=== PATIENT | female | born 1965 | race Caucasian/White ===

== ENCOUNTER → 2020-07-14 | Outpatient (CLI) | payer BC ==
[2020-07-14 23:33] LABS: Basophils # (A) 0.08 X 10*3/uL (0.00-0.10); Basophils % (A) 0.6 %; Eosinophils # (A) 0.07 X 10*3/uL (0.04-0.35); Eosinophils % (A) 0.5 %; HCT 42.3 % (37.2-46.3); HGB 13.9 g/dL (12.0-15.0); Lymphocytes # (A) 1.08 X 10*3/uL (0.90-5.00); Lymphocytes % (A) 7.5 %; MCH 28.5 pg (27.0-32.0); MCHC 32.9 g/dL (32.0-37.0); MCV 86.9 fL (80.0-97.0); Mean Platelet Volume 10.3 fL (9.5-12.2); Monocytes # (A) 1.45 X 10*3/uL (0.20-1.00); Monocytes % (A) 10.1 %; Neutrophils # (A) 11.51 X 10*3/uL (1.80-7.70); Neutrophils % (A) 79.8 %; Platelet Count 365 X 10*3/uL (140-440); RBC 4.87 X 10*6/uL (4.10-5.20); RDW 12.5 % (11.5-14.5)
[2020-07-15 02:35] LABS: Erythrocyte Sedimentation Rate 68 mm/Hr (0-30)
== END | disposition home or self-care (01) ==
LOC: EDSEX → LABWHC1 15:50
PROVIDERS: ATTEND Nurse Practitioner
DX: Z47.1 Aftercare following joint replacement surgery (principal); Z96.642 Presence of left artificial hip joint; M16.12 Unilateral primary osteoarthritis, left hip
CPT/HCPCS: 36415; 85025; 85652; 86140

== ENCOUNTER 2020-07-15 08:48 | Emergency (ER) | payer BC ==
[2020-07-15 08:54] VITALS: BP 137/82; PULSE 121; RESP 16
[2020-07-15 08:55] VITALS: TEMP 98.2
--- NOTE | 2020-07-15 09:26 | ED ---
General Adult HPI - General Chief complaint: Extremity Problem,Nontraumatic Stated complaint: post surgery complications Time Seen by Provider: 07/15/20 08:50 Source: patient, family, RN notes reviewed, old records reviewed Mode of arrival: wheelchair Limitations: no limitations - History of Present Illness Initial comments: This is a 54-year-old male who presents emergency Department complaining that he has quite a bit of what he drainage from his left incision site on his left hip. Patient states he had surgery at another facility in April and over the weekend it started to swell and then this morning it ruptured and he had a lot of bloody fluid come out but the size of the thigh is still considerably larger than normal. Patient states very painful to touch as well. Patient was sent in for blood work yesterday. Patient denies any fever chills. Patient denies any chest pain difficulty breathing first breath. Patient denies any back pain. Patient denies any groin pain. Patient denies any other symptoms at this time. - Related Data Allergies Allergy/AdvReac Type Severity Reaction Status Date / Time No Known Allergies Allergy Verified 07/15/20 08:52 Review of Systems ROS Statement: Those systems with pertinent positive or pertinent negative responses have been documented in the HPI. ROS Other: All systems not noted in ROS Statement are negative. Past Medical History Past Medical History: Diabetes Mellitus Additional Past Medical History / Comment(s): t2DM History of Any Multi-Drug Resistant Organisms: None Reported Past Surgical History: Orthopedic Surgery Past Psychological History: No Psychological Hx Reported Smoking Status: Never smoker Past Alcohol Use History: Occasional Past Drug Use History: None Reported General Exam - General Exam Comments Initial Comments: GENERAL: Patient is well-developed and well-nourished. Patient is nontoxic and well- hydrated and is in mild distress. ENT: Neck is soft and supple. No significant lymphadenopathy is noted. Oropharynx is clear. Moist mucous membranes. Neck has full range of motion without eliciting any pain. EYES: The sclera were anicteric and conjunctiva were pink and moist. Extraocular movements were intact and pupils were equal round and reactive to light. Eyelids were unremarkable. PULMONARY: Unlabored respirations. Good breath sounds bilaterally. No audible rales rhonchi or wheezing was noted. CARDIOVASCULAR: There is a regular rate and rhythm without any murmurs gallops or rubs. ABDOMEN: Soft and nontender with normal bowel sounds. SKIN: Skin is clear with no lesions or rashes and otherwise unremarkable. NEUROLOGIC: Patient is alert and oriented x3. Cranial nerves II through XII are grossly intact. Motor and sensory are also intact. Normal speech, volume and content. Symmetrical smile. MUSCULOSKELETAL: Left thigh is considerably larger than the right very tender to palpation particularly around the incision site that is now open draining serosanguineous fluid. LYMPHATICS: No significant lymphadenopathy is noted PSYCHIATRIC: Normal psychiatric evaluation. Limitations: no limitations Course Vital Signs 07/15/20 08:52 Temperature 98.2 F Pulse Rate 121 H Respiratory 16 Rate Blood Pressure 137/82 O2 Sat by Pulse 96 Oximetry Medical Decision Making - Medical Decision Making I ordered labs and CAT scan of the hip patient then got a call from his surgeon that he wanted him at [facility] patient wanted to drive by private vehicle and he signed out AMA understanding the possible risks. Disposition Clinical Impression: Postoperative complication of skin involving drainage from surgical wound Disposition: Left Against Medical Advice Referrals: Ryan Vann MD [Primary Care Provider] - 1-2 days Time of Disposition: 09:31
== END 2020-07-15 09:42 | disposition left against medical advice (07) ==
LOC: EDSEX → EC 08:48
DX: L76.82 Other postprocedural complications of skin and subcutaneous tissue (principal); T81.31XA Disruption of external operation (surgical) wound, not elsewhere classified, initial encounter
CPT/HCPCS: 99283

== ENCOUNTER → 2020-12-13 | Outpatient (CLI) | payer BC ==
[2020-12-13 12:08] LABS: Basophils % (A) 0 %; Eosinophils # (A) 0.3 k/uL (0-0.7); Eosinophils % (A) 3 %; HCT 42.9 % (39.0-53.0); Lymphocytes # (A) 1.4 k/uL (1.0-4.8); Lymphocytes % (A) 17 %; MCH 28.2 pg (25.0-35.0); MCHC 32.6 g/dL (31.0-37.0); MCV 86.2 fL (80.0-100.0); Mean Platelet Volume 7.3; Monocytes # (A) 0.6 k/uL (0-1.0); Monocytes % (A) 7 %; Neutrophils % (A) 69 %; Platelet Count 182 k/uL (150-450); RBC 4.97 m/uL (4.30-5.90); RDW 15.3 % (11.5-15.5); WBC 8.6 k/uL (3.8-10.6)
[2020-12-13 12:25] LABS: ALT 16 U/L (4-49); AST 19 U/L (17-59); African American GFR (CKD) >90 (>60 ml/min/1.73 sqM); Albumin 4.7 g/dL (3.5-5.0); Albumin/Globulin Ratio 1.8; Alkaline Phosphatase 70 U/L (38-126); Anion Gap 11 mmol/L; Blood Urea Nitrogen 11 mg/dL (9-20); Calcium 9.8 mg/dL (8.4-10.2); Carbon Dioxide 29 mmol/L (22-30); Chloride 97 mmol/L (98-107); Globulin 2.6 g/dL; Glucose 150 mg/dL (74-99); Non-African American GFR(CKD) >90 (>60 ml/min/1.73 sqM); Sodium 137 mmol/L (137-145); Total Bilirubin 0.8 mg/dL (0.2-1.3); Total Protein 7.3 g/dL (6.3-8.2)
[2020-12-13 12:37] LABS: C Reactive Protein 16.7 mg/dL (<1.0)
[2020-12-13 12:42] LABS: Potassium 4.7 mmol/L (3.5-5.1)
[2020-12-13 13:46] LABS: Erythrocyte Sedimentation Rate 53 mm/hr (0-15)
== END | disposition home or self-care (01) ==
LOC: LABWHC1 11:31
PROVIDERS: ATTEND Specialist
DX: T84.52XA Infection and inflammatory reaction due to internal left hip prosthesis, initial encounter (principal)
CPT/HCPCS: 36415; 80053; 85025; 85652; 86140

== ENCOUNTER → 2021-06-21 | Outpatient (CLI) | payer BC ==
[2021-06-21 10:26] LABS: INR 0.9 (<1.2); Partial Thromboplastin Time 23.2 sec (22.0-30.0); Prothrombin Time 10.2 sec (9.0-12.0)
[2021-06-21 14:57] LABS: HCT 42.7 % (39.6-50.0); HGB 14.3 g/dL (13.0-17.0); MCH 30.9 pg (27.0-32.0); MCHC 33.5 g/dL (32.0-37.0); MCV 92.2 fL (80.0-97.0); Mean Platelet Volume 9.5 fL (9.5-12.2); Platelet Count 206 X 10*3/uL (140-440); RBC 4.63 X 10*6/uL (4.40-5.60)
[2021-06-21 15:14] LABS: African American GFR (CKD) 125.3 (60.0-200.0); Albumin 4.6 g/dL (3.8-4.9); Albumin/Globulin Ratio 1.51 (1.60-3.17); Anion Gap 16.1 mmol/L (10.00-18.00); BUN/Creat Ratio 20.99 Ratio (12.00-20.00); Blood Urea Nitrogen 13.6 mg/dL (9.0-27.0); Calcium 9.6 mg/dL (8.7-10.3); Carbon Dioxide 24.1 mmol/L (20.0-27.5); Globulin 3.1 g/dL (1.6-3.3); Non-African American GFR(CKD) 108.1 (60.0-200.0); Potassium 4.5 mmol/L (3.5-5.5); Total Bilirubin 0.5 mg/dL (0.30-1.20); Total Protein 7.7 g/dL (6.2-8.2)
== END | disposition home or self-care (01) ==
LOC: LABWHC1 09:27
PROVIDERS: ATTEND Orthopaedic Surgery
DX: Z01.818 Encounter for other preprocedural examination (principal); M12.9 Arthropathy, unspecified; D64.9 Anemia, unspecified
CPT/HCPCS: 36415; 80053; 83036; 85027; 85610; 85730; 86850; 86900; 86901

== ENCOUNTER → 2021-07-07 | Outpatient (CLI) | payer BC ==
[~2021-07-07] MED LIST: REGADENOSON 0.4 MG/5 ML SYRINGE IV PRN
--- NOTE | 2021-07-07 13:03 | NM ---
EXAMINATION TYPE: NM stress lexiscan cardiolite DATE OF EXAM: 07/07/2021 COMPARISON: NONE HISTORY: Abnormal EKG. History of hypertension, diabetes, and hypercholesterolemia. TECHNIQUE: After the intravenous administration of 9.3 mCi Tc 99m Sestamibi - Cardiolite resting SPE CT images acquired 55 minutes post injection. The patient received 0.4mg Lexiscan, 25.8 mCi Tc 99m Sestamibi - Stress images obtained [address] injection FINDINGS: Review of stress and rest SPECT images demonstrates no distinct perfusion abnormality. Gated analysi s shows normal wall motion with an estimated left ventricular ejection fraction of 55 %. IMPRESSION: No scintigraphic evidence for reversible ischemia.
--- NOTE | 2021-07-08 10:36 | ECHOF ---
Referral Reason:R94.31 Abnormal EKG MEASUREMENTS -------- HEIGHT: 170.2 cm WEIGHT: 81.6 kg BP: 111/57 RVIDd: 3.7 cm (< 3.3) IVSd: 1.2 cm (0.6 - 1.1) LVIDd: 4.7 cm (3.9 - 5.3) LVPWd: 1.3 cm (0.6 - 1.1) IVSs: 1.8 cm LVIDs: 3.2 cm LVPWs: 1.5 cm LA Diam: 3.3 cm (2.7 - 3.8) LAESV Index (A-L): 25.26 ml/m Ao Diam: 3.9 cm (2.0 - 3.7) AV Cusp: 2.3 cm (1.5 - 2.6) MV EXCURSION: 19.089 mm (> 18.000) MV EF SLOPE: 38 mm/s (70 - 150) EPSS: 1.0 cm MV E Dominguez: 0.80 m/s MV DecT: 280 ms MV A Dominguez: 0.87 m/s MV E/A Ratio: 0.91 AV maxP.38 mmHg AV meanP.88 mmHg AR PHT: 471 ms RAP: 5.00 mmHg RVSP: 34.00 mmHg FINDINGS -------- Sinus rhythm. This was a technically good study. The left ventricular size is normal. There is mild concentric left ventricular hypertrophy. Overa ll left ventricular systolic function is normal with, an EF between 60 - 65 %. The right ventricle is mildly enlarged. Normal LA size by volume 22+/-6 ml/m2. The right atrium is normal in size. Aneurysmal Interatrial septum. The aortic valve is bicuspid. There is mild aortic regurgitation. Peak/mean gradient across the A ortic Valve is 11.38mmHg / 4.88mmHg. The mitral valve is normal. Mild tricuspid regurgitation present. There is borderline pulmonary hypertension. The right ventr icular systolic pressure, as measured by Doppler, is 34.00mmHg. Trace/mild (physiologic) pulmonic regurgitation. The aortic root is dilated measuring 3.9cm. Normal inferior vena cava with normal inspiratory collapse consistent with estimated right atrial pre ssure of 5 mmHg. There is no pericardial effusion. CONCLUSIONS -------- 1. The left ventricular size is normal. 2. There is mild concentric left ventricular hypertrophy. 3. Overall left ventricular systolic function is normal with, an EF between 60 - 65 %. 4. The right ventricle is mildly enlarged. 5. Aneurysmal Interatrial septum. 6. The aortic valve is bicuspid. 7. There is mild aortic regurgitation. 8. Peak/mean gradient across the Aortic Valve is 11.38mmHg / 4.88mmHg. 9. Mild tricuspid regurgitation present. 10. There is borderline pulmonary hypertension. 11. The right ventricular systolic pressure, as measured by Doppler, is 34.00mmHg. 12. Trace/mild (physiologic) pulmonic regurgitation. 13. The aortic root is dilated measuring 3.9cm. 14. There is no pericardial effusion. PUBLIC HEALTH TEACHER: Ashley Hendrix RDCS
--- NOTE | 2021-07-08 14:05 | EST ---
EXERCISE STRESS DATE OF SERVICE: 07/07/2021 AGE: 55 SEX: M HT: 5'7" WT: 180 lbs. PROTOCOL: Lexiscan Cardiolite STAGE: NA DURATION OF EXERCISE: NA HEART RATE REST: 74 BLOOD PRESSURE REST: 119/78 MAXIMUM HEART RATE ACHIEVED: 107 MAXIMUM BLOOD PRESSURE: 140/72 85% MPHR: 139 100% MPHR: 163 METS: NA INDICATIONS: Chest pain. CLINICAL INFORMATION: STRESS DATA: Heart rate 74, pressure 119/78 mmHg. Baseline EKG showed sinus mechanism. The patient was given 0.4 mg of Lexiscan over 15 seconds per protocol. Max heart rate was 103 beats per minute. Maximum pressure was 140/72 mmHg. Clinically the patient did not have any symptoms and the EKG did not show any significant ST or T-wave abnormalities concerning for ischemia. CONCLUSION: 1. Nondiagnostic electrocardiogram stress testing in response to Lexiscan. 2. Please follow up on the Cardiolite portion on a separate report from Radiology Department. MMODL / IJN: [id number] /
== END | disposition home or self-care (01) ==
LOC: RADNMMAIN 08:13
PROVIDERS: ATTEND Family Medicine
DX: R94.31 Abnormal electrocardiogram [ECG] [EKG] (principal)
CPT/HCPCS: 93017; 93306; 78452; A9500; J2785

== ENCOUNTER → 2021-07-21 | Outpatient (CLI) | payer BC ==
[2021-07-21 18:08] LABS: HCT 42.8 % (39.6-50.0); HGB 14.2 g/dL (13.0-17.0); MCH 30.2 pg (27.0-32.0); MCHC 33.2 g/dL (32.0-37.0); MCV 91.1 fL (80.0-97.0); Mean Platelet Volume 9.4 fL (9.5-12.2); NRBC Per 100 WBC 0 /100 WBCS (0.0-0.0); Platelet Count 272 X 10*3/uL (140-440); RDW 11.8 % (11.5-14.5); WBC 6.73 X 10*3/uL (4.50-10.00)
[2021-07-21 23:00] LABS: INR 0.94 (0.90-1.11); Partial Thromboplastin Time 27.6 sec (23.5-31.0); Prothrombin Time 10.4 sec (9.9-11.9)
[2021-07-21 23:56] LABS: African American GFR (CKD) 128.4 (60.0-200.0); Anion Gap 18.8 mmol/L (10.00-18.00); BUN/Creat Ratio 20.5 Ratio (12.00-20.00); Blood Urea Nitrogen 12.3 mg/dL (9.0-27.0); Calcium 9.9 mg/dL (8.7-10.3); Carbon Dioxide 21.2 mmol/L (20.0-27.5); Non-African American GFR(CKD) 110.8 (60.0-200.0); Potassium 4.8 mmol/L (3.5-5.5)
== END | disposition home or self-care (01) ==
LOC: LABWHC1 14:34
PROVIDERS: ATTEND Orthopaedic Surgery
DX: Z01.812 Encounter for preprocedural laboratory examination (principal)
CPT/HCPCS: 36415; 80048; 85027; 85610; 85730; 86850; 86900; 86901; 87070

== ENCOUNTER → 2021-09-21 | Outpatient (CLI) | payer BC | END | disposition home or self-care (01) | LOC: LABWHC1 12:30 | PROVIDERS: ATTEND Physician Assistant Medical | DX: Z96.642 Presence of left artificial hip joint (principal) | CPT/HCPCS: 36415; 85652; 86140 ==

== ENCOUNTER → 2021-11-02 | Outpatient (CLI) | payer BC | END | disposition home or self-care (01) | LOC: LABWHC1 15:27 | PROVIDERS: ATTEND Orthopaedic Surgery | DX: Z96.642 Presence of left artificial hip joint (principal) | CPT/HCPCS: 36415; 85652; 86140 ==

== ENCOUNTER → 2021-11-29 | Outpatient (CLI) | payer BC | END | disposition home or self-care (01) | LOC: LABWHC1 12:36 | PROVIDERS: ATTEND Orthopaedic Surgery | DX: Z96.649 Presence of unspecified artificial hip joint (principal) | CPT/HCPCS: 36415; 85652 ==

== ENCOUNTER → 2021-11-30 | Outpatient (CLI) | payer BC | END | disposition home or self-care (01) | LOC: LABWHC1 13:15 | PROVIDERS: ATTEND Orthopaedic Surgery | DX: Z96.649 Presence of unspecified artificial hip joint (principal) | CPT/HCPCS: 36415; 86140 ==

== ENCOUNTER → 2021-12-07 | Outpatient (CLI) | payer BC | END | disposition home or self-care (01) | LOC: LABWHC1 15:18 | PROVIDERS: ATTEND Orthopaedic Surgery | DX: Z53.9 Procedure and treatment not carried out, unspecified reason (principal) ==

== ENCOUNTER → 2022-01-11 | Outpatient (CLI) | payer BC ==
[2022-01-11 16:06] LABS: INR 0.9 (<1.2); Partial Thromboplastin Time 22.2 sec (22.0-30.0); Prothrombin Time 9.8 sec (9.0-12.0)
[2022-01-11 22:37] LABS: HCT 42.8 % (39.6-50.0); HGB 14.7 g/dL (13.0-17.0); MCH 30.4 pg (27.0-32.0); MCHC 34.3 g/dL (32.0-37.0); MCV 88.6 fL (80.0-97.0); Mean Platelet Volume 10.2 fL (9.5-12.2); NRBC Per 100 WBC 0 /100 WBCS (0.0-0.0); Platelet Count 173 X 10*3/uL (140-440); RBC 4.83 X 10*6/uL (4.40-5.60); RDW 13.2 % (11.5-14.5); WBC 5.85 X 10*3/uL (4.50-10.00)
[2022-01-11 22:51] LABS: African American GFR (CKD) 117.4 (60.0-200.0); Albumin 4.9 g/dL (3.8-4.9); Albumin/Globulin Ratio 2.18 (1.60-3.17); Anion Gap 13.2 mmol/L (10.00-18.00); BUN/Creat Ratio 20.88 Ratio (12.00-20.00); Blood Urea Nitrogen 15.6 mg/dL (9.0-27.0); Calcium 9.8 mg/dL (8.7-10.3); Carbon Dioxide 24.8 mmol/L (20.0-27.5); Globulin 2.3 g/dL (1.6-3.3); Non-African American GFR(CKD) 101.3 (60.0-200.0); Total Bilirubin 0.6 mg/dL (0.30-1.20); Total Protein 7.2 g/dL (6.2-8.2)
== END | disposition home or self-care (01) ==
LOC: LABWHC1 14:59
PROVIDERS: ATTEND Orthopaedic Surgery
DX: Z01.812 Encounter for preprocedural laboratory examination (principal); M12.9 Arthropathy, unspecified; D64.9 Anemia, unspecified
CPT/HCPCS: 36415; 80053; 83036; 85027; 85610; 85730; 86850; 86900; 86901; 87070

== ENCOUNTER → 2022-06-06 | Outpatient (CLI) | payer SELFPAY | END | disposition home or self-care (01) | LOC: LABWHC1 13:49 | PROVIDERS: ATTEND Physician Assistant Medical | DX: T84.59XD Infection and inflammatory reaction due to other internal joint prosthesis, subsequent encounter (principal); Y79.2 Prosthetic and other implants, materials and accessory orthopedic devices associated with adverse incidents | CPT/HCPCS: 36415; 85652; 86140 ==

== ENCOUNTER → 2022-08-14 | Outpatient (CLI) | payer BC ==
[2022-08-14 12:36] LABS: African American GFR (CKD) >90 (>60 ml/min/1.73 sqM); Blood Urea Nitrogen 15 mg/dL (9-20); Non-African American GFR(CKD) >90 (>60 ml/min/1.73 sqM)
--- NOTE | 2022-08-14 15:16 | CT ---
EXAMINATION TYPE: CT angio chest DATE OF EXAM: 08/14/2022 COMPARISON: None HISTORY: 57-year-old male Q23.1 Congenital insufficiency of aortic valve TECHNIQUE: Contiguous axial scanning of the chest performed without and with IV Contrast, patient inj ected with 100 mL of Isovue 370. Coronal/sagittal MIP reconstructions performed. 3-D reconstructions generated on a dedicated independent workstation. CT DLP: 714.40 mGycm Automated exposure control for dose reduction was used. FINDINGS: Heart normal size without pericardial effusion. Mild aortic valvular calcifications are noted. Mild aneurysm aortic root at 4.1 cm. Mild aneurysm ascending aorta at 4.2 cm. Conventional arch vessel branching anatomy. Upper descending thoracic aorta normal caliber at 2.8 cm. Lower descending thoracic aorta normal caliber at 2.4 cm. Initial noncontrast images show no evidence for acute intramural hematoma. No evidence for aortic dissection. No thoracic lymphadenopathy by CT size criteria. Lungs show no consolidation or pleural effusion. Visualized upper abdomen shows decreased echogenicity of the hepatic parenchyma. Nonspecific prominen t varices in the left upper quadrant. Sclerotic focus along the right-sided T5 pedicle, likely bone island. Degenerative change sternomanub rial joint. IMPRESSION: 1. 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 2. MILD AORTIC VALVE AND MITRAL VALVULAR CALCIFICATIONS.
== END | disposition home or self-care (01) ==
LOC: RADCTMAIN 11:37
PROVIDERS: ATTEND Internal Medicine Cardiovascular Disease
DX: I71.21 Aneurysm of the ascending aorta, without rupture (principal); I34.81 Nonrheumatic mitral (valve) annulus calcification; Q23.1 Congenital insufficiency of aortic valve
CPT/HCPCS: 82565; 84520; 71275; 36415; Q9967

== ENCOUNTER 2023-11-07 06:01 | Day surgery (SDC) | payer OTHER ==
[~2023-11-07 06:01] MED LIST changes: -REGADENOSON 0.4 MG/5 ML SYRINGE IV PRN; +TETRACAINE 0.5% OPHTH (PF) DROPS 4 ML BTL OP PRN
[2023-11-07] MEDS ORDERED: LIDOCAINE 1% (10MG/ML) FOR IV START INTRADERMA PRN (06:42)
[2023-11-07] MEDS: CYCLOPENTOLATE 1% OPHTH SOLN 2 ML BTL OP PRN (06:51)
[2023-11-07] MEDS: PHENYLEPHRINE 2.5% OPHTH DRP 2ML OP PRN (06:55)
[2023-11-07 07:15] LABS: Glucose,Whole Blood 152 mg/dL (70-110)
[2023-11-07 07:23] VITALS: TEMP 97.7
[2023-11-07] MEDS: LACTATED RINGERS 1,000 ML IV SCH (07:24)
[2023-11-07] MEDS: IV FLUID CONTINUATION 1,000 ML IV ONE (07:24)
[2023-11-07] MEDS ORDERED: fentaNYL (PF) 50 MCG/ML 2 ML AMP ONE (07:25)
[2023-11-07] MEDS ORDERED: MIDAZOLAM 2 MG/2 ML VIAL ONE (07:25)
[2023-11-07] MEDS: EPINEPHrine (PF) 0.3 ML in BALANCED SALT IRRIG SOLN COMB2 500 ML IRRIGATION ONE (07:40)
[2023-11-07] MEDS: DUOVISC KIT (GREEN BOX) INTRAOCULA ONE (07:47)
[2023-11-07] MEDS: BALANCED SALT IRRIG SOLN COMB2 15 ML IRRIG.SOLN INTRAOCULA ONE (07:47)
[2023-11-07] MEDS: LIDOCAINE 1% (PF) 10MG/ML VIAL MISCELLANE ONE (07:48)
[2023-11-07] MEDS: MOXIFLOXACIN HCL 0.5% DROPS 3 ML BTL OP PRN (07:48)
[2023-11-07] MEDS: TIMOLOL 0.5% OPHTH DROPS 5 ML BTL OP PRN (07:48)
--- NOTE | 2023-11-07 08:02 | P.OP ---
Date of Procedure: 11/07/23 Preoperative Diagnosis: NS & CS PSC Postoperative Diagnosis: same Procedure(s) Performed: PIOL, OD Implants: MX60E 19.50 Anesthesia: MAC Surgeon: Edi French Pathology: none sent Condition: stable Disposition: same day Indications for Procedure: blurry vision Operative Findings: no complications
[2023-11-07 08:07] VITALS: RESP 12
[2023-11-07 08:19] VITALS: BP 128/71; PULSE 62
--- NOTE | 2023-11-07 23:49 | OP ---
OPERATIVE REPORT DATE OF SERVICE : 11/07/2023 PREOPERATIVE DIAGNOSES: Nuclear sclerosis and cortical sclerosis with posterior subcapsular cataract. POSTOPERATIVE DIAGNOSES: Nuclear sclerosis and cortical sclerosis with posterior subcapsular cataract. OPERATION: Phacoemulsification of cataract and interocular lens implant, right eye. ESTIMATED BLOOD LOSS: Zero. SPECIMEN TAKEN: None. NARRATIVE: After obtaining the appropriate consent, the patient was brought to the operating room where the patient was placed under cardiac monitoring and prepped and draped in the usual sterile manner. At the 11 o'clock position, a 15-degree super sharp blade was used to create a paracentesis followed by instillation of 1% Xylocaine MPF 50:50 mix with BSS into the anterior chamber. This was followed by Duovisc viscoelastic to stabilize the anterior chamber. At the 9 o'clock position a self-sealing corneal flap incision was created using 2.8 mm cheng keratome. A cystotome was used to initiate a continuous tear capsulorrhexis which was completed with the Utrata forceps. A Binkhorst cannula was used to hydrodissect the lens nucleus followed by hydrodelineation. Phacoemulsification of the lens was performed utilizing phacochop in 13.24 seconds at 14.3% power. The remaining cortical material was removed using the irrigation aspiration mode followed by additional 1% Xylocaine MPF into the anterior chamber followed by viscoelastic to stabilize the capsular bag. A [employer]ch [employer] Lomb MX60E 19.5 diopters posterior chamber lens was placed into the capsular bag without difficulty. The remaining viscoelastic material was removed from the anterior chamber with the irrigation/aspiration. Balanced salt solution was used to normalize the intraocular pressure. The incision was checked for watertight integrity. The patient then received 2 drops of 0.5% timolol followed by 2 drops Vigamox, was lightly patched and shielded in the usual manner. There were no complications from the procedure. The patient tolerated the procedure well and was returned to recovery in good condition. MMODL / IJN: [id number] /
== END 2023-11-07 08:47 | disposition home or self-care (01) ==
LOC: OR 06:01
PROVIDERS: ATTEND Ophthalmology
DX: E11.36 Type 2 diabetes mellitus with diabetic cataract (principal); H25.11 Age-related nuclear cataract, right eye; H25.041 Posterior subcapsular polar age-related cataract, right eye; I10 Essential (primary) hypertension; Z79.84 Long term (current) use of oral hypoglycemic drugs; Z79.82 Long term (current) use of aspirin; Z79.899 Other long term (current) drug therapy; Z90.49 Acquired absence of other specified parts of digestive tract
CPT/HCPCS: 66984; C1780; J2250; J0171; J3010; J2001

== ENCOUNTER → 2024-03-14 | Outpatient (CLI) | payer OTHER ==
--- NOTE | 2024-03-14 11:59 | CT ---
EXAMINATION TYPE: CT angio chest DATE OF EXAM: 03/14/2024 11:49 AM COMPARISON: 02/26/2023 HISTORY: Thoracic aortic aneurysm w/o rupture CT DLP: 540.3 mGycm Automated exposure control for dose reduction was used. CONTRAST: CTA scan of the thorax is performed without and with IV Contrast, patient injected with 100 mL of Iso esha 370, pulmonary embolism protocol. FINDINGS: Findings: There are a few scattered micronodules but no suspicious lung mass or nodule. There is no airspace consolidation or abnormal interstitial density. There is no pleural effusion or pneumothorax. No mediastinal, hilar or axillary adenopathy. The ascending thoracic aorta is 3.4 cm aortic root is approximately 3.6 cm. Limited scanning through the upper abdomen reveals hepatic steatosis with no other significant abnorm ality. The osseous structures are intact. IMPRESSION: 1. There is no thoracic aortic aneurysm as described above. 2. Scattered micronodules but no suspicious lung nodule. 3. No acute cardiopulmonary disease. 4. Hepatic steatosis [facility], , 03/14/2024 11:56 AM
== END | disposition home or self-care (01) ==
LOC: RADCTMAIN 11:14
PROVIDERS: ATTEND Family Medicine
CPT/HCPCS: 71275